=== PATIENT | female | born 1950 | race Caucasian/White ===

== ENCOUNTER 2016-12-20 18:40 | Emergency (ER) | payer OTHER ==
[~2016-12-20] VITALS: Ht 167.6 cm; Wt 80.0 kg
[2016-12-20 18:44] VITALS: BP 117/70; PULSE 52; RESP 18; TEMP 97.4; O2SAT 98
--- NOTE | 2016-12-20 18:49 | PD ---
HPI Chief Complaint: ENT Complaint Time Seen by Provider: 18:49 Travel History International Travel<30 days: No Contact w/Intl Traveler<30days: No Traveled to known affect area: No History of Present Illness HPI 58-year-old female presents the emergency department with ongoing and worsening right ear pain. Patient has been seen 3 times in the local urgent care for the same complaint, and has had ear irrigation 3 times in the last week for presumed cerumen impaction. She is currently taking Naprosyn and doxycycline with some improvement of her sinus symptoms, and cough symptoms, but her ear pain is continuing to be bothersome and somewhat worsening. She denies any significant drainage. She normally wears hearing aids but is unable to place it in the right ear at this time. She states that hearing in that areas down as well. She denies sore throat, fever, chills, or other symptoms. She has no known drug allergies. [facility] Social History Alcohol Use: Yes Tobacco Use: No Substance Use: No Review of Systems Except as stated in HPI: all other systems reviewed are Neg General / Constitutional: No: Fever Eyes: No: Visual changes HENT: Positive: Earache, No: Headaches Cardiovascular: No: Chest Pain or Discomfort Respiratory: No: Shortness of Breath Gastrointestinal: No: Abdominal Pain Genitourinary: No: Dysuria Musculoskeletal: No: Pain Skin: No Rash Neurologic: No: Weakness Psychiatric: No: Depression Endocrine: No: Polydipsia Hematologic/Lymphatic: No: Easy Bruising Physical Exam Narrative GENERAL: Patient appears in mild to moderate distress. SKIN: Warm and dry. Normal color. Normal turgor. HEAD: Atraumatic. Normocephalic. EYES: Pupils equal and round. No scleral icterus. No injection or drainage. ENT: No nasal bleeding or discharge. Mucous membranes pink and moist. Pharynx is normal. Left TM is unremarkable. Right TM is obscured by yellowish green exudate in the canal not able to be irrigated out. NECK: Trachea midline. No JVD. Supple nontender without significant lymphadenopathy. CARDIOVASCULAR: Regular rate and rhythm. RESPIRATORY: No accessory muscle use. Clear to auscultation. Breath sounds equal bilaterally. MUSCULOSKELETAL: Extremities without clubbing, cyanosis, or edema. No obvious deformities. NEUROLOGICAL: Awake and alert. No obvious cranial nerve deficits. Motor grossly within normal limits. Five out of 5 muscle strength in the arms and legs. Normal speech. PSYCHIATRIC: Appropriate mood and affect; insight and judgment normal. Data Data Last Documented VS Vital Signs Date Time Temp Pulse Resp B/P Pulse Ox O2 Delivery O2 Flow Rate FiO2 12/20/16 18:44 97.4 52 18 117/70 98 MDM Medical Decision Making Medical Screen Exam Complete: Yes Emergency Medical Condition: Yes Differential Diagnosis Cerumen impaction. Chronic otitis. Chronic external otitis. Possible pseudomonas. Narrative Course Patient is medically stable at time of exam. Ear irrigation was attempted without significant success. Patient is placed on Ciprodex drops twice daily to the right ear for the next 10 days. Patient to continue her doxycycline 100 mg twice a day as previously prescribed. Patient to continue Naprosyn 500 mg twice a day. Patient is given Lortab 5/325 one every 6 hours when necessary pain #12. Patient should follow-up with Dr. Clemente, the ENT stone decorator today. Patient can return the emergency Department with worsening symptoms as needed. Diagnosis Primary Impression: Chronic otitis externa of right ear Qualified Code: H60.61 - Chronic otitis externa of right ear, unspecified type Referrals: Sawyer Clemente MD call for appointment Patient Instructions: General Instructions, Otitis Externa (ED) Additional Instructions: Patient is placed on Ciprodex drops twice daily to the right ear for the next 10 days. Patient to continue her doxycycline 100 mg twice a day as previously prescribed. Patient to continue Naprosyn 500 mg twice a day. Patient is given Lortab 5/325 one every 6 hours when necessary pain #12. Patient should follow-up with Dr. Clemente, the ENT stone decorator today. Patient can return the emergency Department with worsening symptoms as needed. Med/Other Pt SpecificInfo: Prescription(s) given Disposition: 01 DISCHARGE HOME Condition: Stable Asael Castañeda Dec 20, 2016 18:49
[2016-12-20] MEDS ORDERED: DICY10CA12 PO (19:10)
[2016-12-20] MEDS ORDERED: DOXY1CAP91 PO (19:10)
[2016-12-20] MEDS ORDERED: PRED10PA PO (19:10)
[2016-12-20] MEDS ORDERED: CITA20TA4 PO (19:10)
[2016-12-20] MEDS ORDERED: NAPR500 PO (19:10)
[2016-12-20] MEDS ORDERED: HYDR-3533 PO (19:17)
[2016-12-20] MEDS ORDERED: CIPR0.3S RIGHT EAR (19:17)
== END 2016-12-20 19:31 | disposition home or self-care (01) ==
LOC: PHEFT 18:40
DX: H60.61 Unspecified chronic otitis externa, right ear (principal)
CPT/HCPCS: 99282